=== PATIENT | male | born 1980 | race Caucasian/White ===

== ENCOUNTER 2017-06-25 10:16 | Emergency (ER) | payer BC ==
[~2017-06-25] VITALS: Ht 162.6 cm; Wt 70.0 kg
[2017-06-25 10:20] VITALS: Ht 162.6 cm; Wt 70.0 kg
[2017-06-25] MEDS ORDERED: HYDROCODONE/APAP (10/325) TAB PO ONE (10:30)
[2017-06-25] MEDS ORDERED: ONDANSETRON (ODT) 4 MG TAB ODT ONE (10:30)
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
--- NOTE | 2017-06-25 11:19 | RADRPT ---
PROCEDURE: Left Shoulder Series CLINICAL INDICATION: Left shoulder pain TECHNIQUE: 3 views of the left shoulder are available for review. COMPARISON: None available FINDINGS: There is normal mineralization and alignment of the bones of the left shoulder. No fracture or disl ocation is identified. Joint spaces are well maintained. The acromioclavicular joint is grossly un remarkable. The visualized portions of the left chest wall are within normal limits. The soft tissu es are unremarkable. IMPRESSION: 1. Unremarkable left shoulder x-ray series. RPTAT: HJBF .Hans Lund MD, Date Time Electronically viewed and signed by .Hans Lund MD, on 06/25/2017 11:19 .B/
--- NOTE | 2017-06-25 11:19 | RADRPT ---
PROCEDURE: XR Tibia and Fibula. CLINICAL INDICATION: Left lower leg pain TECHNIQUE: Two views of the left tibia and fibula are available for review. COMPARISON: None available FINDINGS: There is normal mineralization and alignment of the bones of the left tibia and fibula. There is no evidence of acute fracture or dislocation. The suboptimally visualized joint spaces appear grossly within normal limits. The soft tissues are unremarkable. IMPRESSION: 1. Unremarkable left tibia and fibula x-ray series. RPTAT: HJBF .Hans Lund MD, MD Date Time Electronically viewed and signed by .Hans Lund MD, on 06/25/2017 11:19 .B/
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
[2017-06-25] MEDS ORDERED: IBUP800T25 PO (13:34)
--- NOTE | 2017-06-25 14:26 | RADRPT ---
PROCEDURE: CT left wrist without contrast CLINICAL INDICATION: Possible fracture TECHNIQUE: CT scan of the left rib was performed . No IV contrast was administered. Coronal and sagittal reformatted images were obtained from the axial source images. Images were reviewed on a [employer] gh-resolution PACS workstation. The calculated radiation dose measures 7.[address] DI measures 129.85 mGy. One or more of the following dose reduction techniques were used: - Automated exposure control. - Adjustment of the mA and/or kV according to patient size . - Use of iterative reconstruction technique. COMPARISON: Radiograph from the same day. FINDINGS: Osseous structures: There is a minimally displaced chip fracture at the dorsal aspect of the trapezium seen on the axial series image 42 and sagittal series image 53. No additional fractures are identified. The remaining osseous structures are intact at the triquetrum is maintained. Static carpal alignment is preserved as well. Soft tissues: There is focal, nonspecific thickening of the extensor carpi ulnaris distally which may represent a strain or tendinosis. Attenuation of the remaining tendons is within normal limits. IMPRESSION: 1. Nondisplaced chip fracture seen at the dorsal margin of the trapezium. RPTAT: AA .Alex Guerra MD, MD Date Time Electronically viewed and signed by .Alex Guerra MD, MD on 06/25/2017 14:26 .d/
--- NOTE | 2017-06-25 14:30 | EN ---
Date/Time of Note Date/Time of Note DATE: 06/25/17 TIME: 14:28 ER Progress Note This patient was signed out to me by Dr. Mota pending results of a CT scan dIAGNOSTIC IMAGING REPORT Patient: PHILIP ROGER : 1980 Age: 37 Sex: M MR #: [id number] DOS: 06/25/17 1225 Ordering MD: FRED MOTA MD Location: [facility] Room/Bed: PROCEDURE: CT left wrist without contrast CLINICAL INDICATION: Possible fracture TECHNIQUE: CT scan of the left rib was performed . No IV contrast was administered. Coronal and sagittal reformatted images were obtained from the axial source images. Images were reviewed on a high-resolution PACS workstation. The calculated radiation dose measures 7.37 mGy centimeters. The CTDI measures 129.85 mGy. One or more of the following dose reduction techniques were used: - Automated exposure control. - Adjustment of the mA and/or kV according to patient size . - Use of iterative reconstruction technique. COMPARISON: Radiograph from the same day. FINDINGS: Osseous structures: There is a minimally displaced chip fracture at the dorsal aspect of the trapezium seen on the axial series image 42 and sagittal series image 53. No additional fractures are identified. The remaining osseous structures are intact at the triquetrum is maintained. Static carpal alignment is preserved as well. Soft tissues: There is focal, nonspecific thickening of the extensor carpi ulnaris distally which may represent a strain or tendinosis. Attenuation of the remaining tendons is within normal limits. IMPRESSION: 1. Nondisplaced chip fracture seen at the dorsal margin of the trapezium. RPTAT: AA .Alex Guerra MD, MD Date Time Electronically viewed and signed by .Alex Guerra MD, MD on 06/25/2017 14:26 .d/ CC: FRED MOTA MD CT scan shows evidence of a nondisplaced chip fracture seen at the dorsal margin of the trapezium. Patient was placed in a splint as ordered by Dr. Mota. He is distally neurovascularly intact pre-and post splint application. Patient may follow-up with his primary medical doctor and have further evaluation by a hand specialist to evaluate his wrist. ONI POWELL PA-C Jun 25, 2017 14:30
== END 2017-06-25 14:55 | disposition home or self-care (01) ==
LOC: FTE 10:16
DX: S80.12XA Contusion of left lower leg, initial encounter (principal); S40.012A Contusion of left shoulder, initial encounter; S60.212A Contusion of left wrist, initial encounter; R07.9 Chest pain, unspecified; V49.40XA Driver injured in collision with unspecified motor vehicles in traffic accident, initial encounter
CPT/HCPCS: 70450; 71010; 73030; 73200; 73590